=== PATIENT | female | born 1960 | race Caucasian/White ===

== ENCOUNTER 2018-10-08 00:33 | Emergency (ER) | payer BC ==
[~2018-10-08] VITALS: Ht 167.6 cm; Wt 70.3 kg
[2018-10-08 00:42] VITALS: BP 149/91
--- NOTE | 2018-10-08 01:12 | PHYS DOC ---
Past Medical History Past Medical History: No Pertinent History Past Surgical History: , Hysterectomy Smokin Pack Per Day Alcohol Use: Occasionally Drug Use: None Adult General Chief Complaint Chief Complaint: LACERATION/AVULSION HPI HPI Patient is a 58 year old female who presents with a forearm laceration after punching a window. She states she started to get someone's attention on the other side of the window when she knocked, and the window broke. She suffered 2 puncture wounds to her right forearm where she is experiencing some tingling in her third through fifth digits. She is also having decrease in range of motion and strength in her third through fifth digits. Having pain in her right forearm that is worsened with movement. Nothing seems to make the pain better. Patient is unsure when her last tetanus status was.[] Review of Systems Review of Systems Constitutional: Denies fever or chills [] Eyes: Denies change in visual acuity, eye pain [] HENT: Denies nasal congestion or sore throat [] Respiratory: Denies cough or shortness of breath [] Cardiovascular: Denies palpitations or chest pain[] GI: Denies abdominal pain, nausea, vomiting[] : Denies dysuria or hematuria [] Musculoskeletal: Reports right forearm pain, denies back pain[] Integument: Reports laceration to her right forearm, denies rash[] Neurologic: Reports decreased sensation to her third through fifth digits on her right hand, denies headache [] Complete systems were reviewed and found to be within normal limits, except as documented in this note. Current Medications Current Medications Current Medications Medications (Trade) Dose Ordered Sig/Keyur Start Time Stop Time Status Last Admin Dose Admin Diphtheria/ Tetanus/Acell Pertussis (Boostrix) 0.5 ml ONCE ONCE 10/08/18 01:30 10/08/18 01:31 DC 10/08/18 01:18 0.5 ML Lidocaine/ Epinephrine (LIDOCAINE 2%-EPI 1:100,000 multi-dose) 20 ml 1X ONCE 10/08/18 01:30 10/08/18 01:31 DC 10/08/18 02:15 20 ML Neomycin/ Polymyxin/ Bacitracin (Triple Antibiotic Ointment) 1 pkt 1X ONCE 10/08/18 02:30 10/08/18 02:31 DC 10/08/18 02:28 1 PKT Allergies Allergies Allergies Coded Allergies Type Severity Reaction Last Updated Verified No Known Drug Allergies 10/08/18 No Physical Exam Physical Exam Constitutional: No no acute distress, non-toxic appearance. [] HENT: Normocephalic, atraumatic[] Eyes: EOMI, conjunctiva normal. [] Neck: Normal range of motion, no tenderness. [] Cardiovascular:Heart rate regular rhythm, no murmur [] Lungs & Thorax: Bilateral breath sounds clear to auscultation [] Abdomen: Bowel sounds normal, soft, no tenderness. [] Skin: Two 1 cm lacerations on her right forearm, no rash. [] Back: No tenderness, no CVA tenderness. [] Extremities: Decrease range of motion and strength of digits 3 through 5 on right hand. [] Neurologic: Alert and oriented X 3, decreased sensation to the third through fifth digits of right hand. [] Psychologic: Affect normal, mood normal. [] Current Patient Data Vital Signs Vital Signs Date Time Temp Pulse Resp B/P (MAP) Pulse Ox O2 Delivery O2 Flow Rate FiO2 10/08/18 00:42 98.4 104 20 149/91 (110) 98 Room Air 98.4 EKG EKG [] Radiology/Procedures Radiology/Procedures [] Course & Med Decision Making Course & Med Decision Making 58-year-old female presents to the emergency department after cutting her right forearm on glass. Patient was having decreased sensation, range of motion, strength to her third through fifth digits on her right hand. Examination revealed 2 1 cm puncture rooms on the medial aspect of her right forearm. Pertinent Imaging studies reviewed. Imaging showed no foreign body in wound. Tetanus was updated. Both wounds were closed. [place] prescription provided. Patient stable for discharge with outpatient follow-up with PCP. Discussed findings and plan with patient and family, who acknowledge understanding and agreement. (See chart for details) [] Dragon Disclaimer Dragon Disclaimer This electronic medical record was generated, in whole or in part, using a voice recognition dictation system. Laceration/Wound Repair Laceration/Wound Repair : Wound Location: upper extremity (2 right forearm puncture wounds) Wound's Depth, Shape: superficial Wound Length (cm): 1 Wound Explored: clean Irrigated w/ Saline (ccs): 100 Betadine Prep?: Yes Anesthesia: Lidocaine w/ Epi (2%) Wound Debrided: minimal Wound Repaired With: sutures Suture Size/Type: 4:0, nylon Number of Sutures: 6 Layer Closure?: No Sterile Dressing Applied?: Yes Splint Applied?: No Sling Applied?: No Departure Departure Impression: Primary Impression: Laceration Disposition: 01 HOME, SELF-CARE Condition: STABLE Referrals: UNKNOWN PCP NAME (PCP) Patient Instructions: Compartment Syndrome, Laceration Care, Adult, Easy-to- Read Additional Instructions: Do not soak your wound. You may shower. Clean wound daily with soap and water. Change dressing 2 times daily. Use over the counter antibiotic ointment with each dressing change. Sutures need to be removed in 7 days. Present to your family doctor or local urgent care for removal. You may also present to the ED but it will be an additional visit/charge. After suture removal you may use Vitamin E ointment to soften the wound and prevent scarring. Use [id number] ibuprofen and Tylenol for pain or discomfort Ice area 20 minutes on 20 minutes off for the next few days. Scripts Hydrocodone/Apap 5-325 (NORCO 5-325 TABLET) 1 Each Tablet 0.5 TAB PO PRN Q6HRS PRN for PAIN, #6 TAB 0 Refills Prov: SHELBI SIGALA DO 10/08/18 SHELBI SIGALA DO Oct 08, 2018 01:12
[2018-10-08] MEDS ORDERED: LIDOCAINE 2%/EPI 1:100,000 20 ML VIAL. IJ ONE (01:30)
[2018-10-08] MEDS ORDERED: DIPHTH,PERTUSS(ACELL),TET TOX 0.5 ML DISP.SYRIN. VAX IM ONE (01:30)
--- NOTE | 2018-10-08 02:26 | RAD ---
Two-view right forearm HISTORY: Status post laceration AP lateral views The visualized osseous structures appear normal. There is no radiopaque foreign body. IMPRESSION: No acute bony abnormality. Electronically signed by: Naif Ferguson III, MD (10/08/2018 2:23 AM) [id number]
[2018-10-08] MEDS ORDERED: NEOMY/BACITR/POLYMYXIN OINT PACKET. TP ONE (02:30)
[2018-10-08] MEDS ORDERED: HYDR-3164 PO (02:57)
== END 2018-10-08 02:55 | disposition home or self-care (01) ==
LOC: ER 00:33
DX: S51.811A Laceration without foreign body of right forearm, initial encounter (principal); F17.200 Nicotine dependence, unspecified, uncomplicated; Z90.710 Acquired absence of both cervix and uterus; Z98.890 Other specified postprocedural states; W25.XXXA Contact with sharp glass, initial encounter; Y93.89 Activity, other specified; Y92.89 Other specified places as the place of occurrence of the external cause; Y99.8 Other external cause status
CPT/HCPCS: 12001; 73090; 90471; 90715; 99283; J3490